=== PATIENT | male | born 1990 | race African-American/Black ===

== ENCOUNTER 2017-09-05 20:44 | Emergency (ER) | payer OTHER ==
[2017-09-05] MEDS ORDERED: Acetaminophen TAB* 325 MG PO ONE (23:47)
[2017-09-05] MEDS ORDERED: Cephalexin CAP* 500 MG PO ONE (23:47)
--- NOTE | 2017-09-05 23:50 | ED ---
Laceration/Wound HPI - HPI Summary HPI Summary: Laceration to left eyebrow after being hit by an elbow during a basketball game. Denies LOC, RAMÍREZ, N/V, vision change, change in mental status, focal deficits, pain to nose, teeth, lips, tongue.. No other complaints. - History of Current Complaint Stated Complaint: LT EYE INJURY Time Seen by Provider: 09/05/17 23:44 Hx Obtained From: Patient Mechanism of Injury: Sharp/Blunt Trauma Onset Severity: Mild Current Severity: Mild Pain Intensity: 4 Pain Scale Used: 0-10 Numeric Associated Signs & Symptoms: Negative - Allergy/Home Medications Allergies/Adverse Reactions: Allergies Allergy/AdvReac Type Severity Reaction Status Date / Time No Known Allergies Allergy Verified 09/05/17 20:54 Home Medications: Home Medications levETIRAcetam TAB* [Keppra TAB*] 500 mg PO BID 09/05/17 [History Confirmed 09/05] PMH/Surg Hx/FS Hx/Imm Hx Endocrine/Hematology History: Denies: Hx Anticoagulant Therapy Cardiovascular History: Denies: Hx Cardiac Arrest History: Denies: Hx Dialysis EENT History: Denies: Hx Deafness Neurological History: Denies: Hx Dementia Psychiatric History: Denies: Hx Autism Infectious Disease History: No Infectious Disease History: Denies: Traveled Outside the [place] in Last 30 Days - Social History Alcohol Use: None Substance Use Type: Reports: Other Substance Use Comment - Amount & Last Used: in treatement at [facility] Smoking Status (MU): Light Every Day Tobacco Smoker Review of Systems Constitutional: Negative Eyes: Negative ENT: Negative Cardiovascular: Negative Respiratory: Negative Gastrointestinal: Negative Genitourinary: Negative Musculoskeletal: Negative Skin: Negative Neurological: Negative Psychological: Normal All Other Systems Reviewed And Are Negative: Yes Physical Exam - Summary Physical Exam Summary: EOMs intact. No trauma to tongue teeth lips. Full range of motion of jaw, neck. 3 cm laceration left eyebrow. Bleeding controlled Triage Information Reviewed: Yes Vital Signs On Initial Exam: Initial Vitals Temp Pulse Resp BP Pulse Ox 98.5 F 58 13 132/85 99 09/05/17 20:51 09/05/17 20:51 09/05/17 20:51 09/05/17 20:51 09/05/17 20:51 Vital Signs Reviewed: Yes Appearance: Positive: Well-Appearing Skin: Positive: Warm Head/Face: Positive: Normal Head/Face Inspection Eyes: Positive: Normal ENT: Positive: Normal ENT inspection Neck: Positive: Supple Respiratory/Lung Sounds: Positive: Clear to Auscultation Cardiovascular: Positive: Normal Abdomen Description: Positive: Nontender Musculoskeletal: Positive: Normal Neurological: Positive: Normal Psychiatric: Positive: Normal AVPU Assessment: Alert - [place] Coma Scale Best Eye Response: 4 - Spontaneous Best Motor Response: 6 - Obeys Commands Best Verbal Response: 5 - Oriented Coma Scale Total: 15 Procedures - Laceration/Wound Repair 1 Location: face Description: Linear Anesthesia: Local, 1.0% Length, Depth and Shape: 2cm x .5cm Betadine Prep?: No - Hibiclens prep Irrigated w/ Saline (ccs): 30 - saline plus Hibiclens Laceration/Wound Explored: clean Debridement: minimal Number of Sutures: 4 - 6. 0 Ethilon Layer Closure?: No Diagnostics - Vital Signs Vital Signs Temp Pulse Resp BP Pulse Ox 09/05/17 20:51 98.5 F 58 13 132/85 99 - Laboratory Lab Statement: Any lab studies that have been ordered have been reviewed, and results considered in the medical decision making process. Laceration Repair Course/Dx - Course Course Of Treatment: Laceration to left eyebrow after being hit by an elbow during a basketball game. Denies LOC, RAMÍREZ, N/V, vision change, change in mental status, focal deficits, pain to nose, teeth, lips, tongue.. No other complaints. EOMs intact. No trauma to tongue teeth lips. Full range of motion of jaw, neck. 3 cm laceration left eyebrow. Bleeding controlled - Clinical Impression Provider Diagnoses: Laceration Discharge - Sign-Out/Discharge Documenting (check all that apply): Discharge/Admit/Transfer - Discharge Plan Condition: Stable Disposition: HOME Prescriptions: Cephalexin CAP* [Keflex CAP*] 500 mg PO TID 7 Days #21 cap Patient Education Materials: Care For Your Stitches (ED), Laceration (ED), Facial Laceration (ED) Referrals: No Primary Care Phys,NOPCP [Primary Care Provider] - [facility] [Outside] Additional Instructions: Sutures out in 5-7 days. Take antibiotics as directed. Return to the ED for any new or worsening symptoms - Billing Disposition and Condition Condition: STABLE Disposition: Home
[2017-09-06 00:22] VITALS: BP 130/66
== END 2017-09-06 00:10 | disposition home or self-care (01) ==
LOC: ED 20:44
DX: S01.112A Laceration without foreign body of left eyelid and periocular area, initial encounter (principal); W50.0XXA Accidental hit or strike by another person, initial encounter; Y93.67 Activity, basketball; Y92.9 Unspecified place or not applicable; F17.210 Nicotine dependence, cigarettes, uncomplicated
CPT/HCPCS: 99282; A9270-GY

== ENCOUNTER 2017-09-24 22:40 | Emergency (ER) | payer OTHER ==
[2017-09-24] MEDS ORDERED: NS 0.9% 1000 ML* 1,000 ML IV ONE (23:04)
[2017-09-24] MEDS ORDERED: levETIRAcetam IV* 1,000 MG in NS 0.9% 100 ML* 100 ML IVPB ONE (23:04)
[2017-09-24] MEDS ORDERED: NS 0.9% 100 ML* 100 ML ONE (23:11)
[2017-09-24 23:57] LABS: Hematocrit 29 % (42-52); Hemoglobin 9.5 g/dl (14.0-18.0); Mean Corpuscular HGB Conc 32 g/dl (31-36); Mean Corpuscular Hemoglobin 27 pg (27-31); Mean Corpuscular Volume 84 fL (80-94); Mean Platelet Volume 7.6 um3 (7.4-10.4); Platelet Count 286 10^3/ul (150-450); Red Blood Count 3.52 10^6/ul (4.00-5.40); Red Cell Distribution Width 16 % (10.5-15); White Blood Count 10.4 10^3/ul (3.5-10.8)
[2017-09-25 00:08] LABS: EGFR Non-African American 99.2 (>60)
[2017-09-25 00:23] LABS: ABS Basophils 0.1 10^3/ul (0-0.2); ABS Eosinophils 0.2 10^3/ul (0-0.6); ABS Lymphocytes 1.9 10^3/ul (1.0-4.8); ABS Monocytes 1.9 10^3/ul (0-0.8); ABS Neutrophils 6.3 10^3/ul (1.5-7.7); ABS Nucleated RBC 0 10^3/ul; Eosinophil % 2.1 % (0-6); Lymphocyte % 17.8 % (25-47); Nucleated Red Blood Cells % 0
--- NOTE | 2017-09-25 00:43 | ED ---
Tapan Moraes Angela, scribed for Esequiel Alexander MD on 09/24/17 at 2307 . Neurological HPI - HPI Summary HPI Summary: This pt is a 26 y/o male, with hx of seizures, presenting to [facility] via EMS for possible seizure. Pt was playing basketball outside when he became overheated and sat down. He then poured a glass of ice water over his head and subsequently fell over while having a seizure. Apparent seizure was witnessed and they state pt's head was shaking, not his body. Pt describes typical seizures as whole body shaking and usually has seizures once a month. Denies SOB , chest pain, nausea, vomiting. Pt notes he takes Keppra 500 mg BID, which he has taken for 2 years now. He states he has not taken it today yet. His neurologist is located in [place] and the last time he saw him was 1.5 years ago because he was in [facility]. Pt got released from halfway in January 2017. Pt has had seizures since he was 10 y/o. Pt is in [facility] for cocaine abuse. - History of Current Complaint Chief Complaint: EDSeizure Stated Complaint: SEIZURE Time Seen by Provider: 09/24/17 22:57 Hx Obtained From: Patient Onset/Duration: Sudden Onset, Resolved Timing: Sudden Onset Onset Severity: Moderate Current Severity: None Pain Intensity: 0 Pain Scale Used: 0-10 Numeric Seizure Character: Partial (Specify) - head only Aggravating: Nothing Alleviating: Spontanious Resolution Associated Signs and Symptoms: Positive: Seizure. Negative: Nausea/Vomiting, Fever, Chest Pain, Shortness of Breath - Allergy/Home Medications Allergies/Adverse Reactions: Allergies Allergy/AdvReac Type Severity Reaction Status Date / Time No Known Allergies Allergy Verified 09/05/17 20:54 PMH/Surg Hx/FS Hx/Imm Hx Endocrine/Hematology History: Denies: Hx Anticoagulant Therapy Cardiovascular History: Denies: Hx Cardiac Arrest History: Denies: Hx Dialysis Sensory History: Denies: Hx Deafness Neurological History: Reports: Hx Seizures Denies: Hx Dementia Psychiatric History: Denies: Hx Autism - Immunization History Date of Tetanus Vaccine: 2013 Date of Influenza Vaccine: none Infectious Disease History: No Infectious Disease History: Denies: Traveled Outside the [place] in Last 30 Days - Family History Known Family History: Negative: Cardiac Disease - Social History Alcohol Use: None Substance Use Type: Reports: Cocaine, Other Substance Use Comment - Amount & Last Used: in treatement at [facility] Smoking Status (MU): Light Every Day Tobacco Smoker Review of Systems Negative: Fever, Chills Negative: Chest Pain Negative: Shortness Of Breath Negative: Vomiting, Nausea Neurological: Other - POS: seizure All Other Systems Reviewed And Are Negative: Yes Physical Exam - Summary Physical Exam Summary: VITAL SIGNS: Reviewed. GENERAL: Patient is a well-developed and nourished male who is lying comfortable in the stretcher. Patient is not in any acute respiratory distress. HEAD AND FACE: No signs of trauma. No ecchymosis, hematomas or skull depressions. No sinus tenderness. EYES: PERRLA, EOMI x 2, No injected conjunctiva, no nystagmus. EARS: Hearing grossly intact. Ear canals and tympanic membranes are within normal limits. MOUTH: Oropharynx within normal limits. NECK: Supple, trachea is midline, no adenopathy, no JVD, no carotid bruit, no c- spine tenderness, neck with full ROM. CHEST: Symmetric, no tenderness at palpation LUNGS: Clear to auscultation bilaterally. No wheezing or crackles. CVS: Regular rate and rhythm, S1 and S2 present, no murmurs or gallops appreciated. ABDOMEN: Soft, non-tender. No signs of distention. No rebound no guarding, and no masses palpated. Bowel sounds are normal. EXTREMITIES: FROM in all major joints, no edema, no cyanosis or clubbing. NEURO: Alert and oriented x 3. No acute neurological deficits. Speech is normal and follows commands. SKIN: Dry and warm Triage Information Reviewed: Yes Vital Signs On Initial Exam: Initial Vitals Temp Pulse Resp BP Pulse Ox 98.9 F 65 21 126/72 97 09/24/17 22:43 09/24/17 22:43 09/24/17 22:43 09/24/17 22:43 09/24/17 22:43 Vital Signs Reviewed: Yes Diagnostics - Vital Signs Vital Signs Temp Pulse Resp BP Pulse Ox 09/24/17 22:43 98.9 F 65 21 126/72 97 - Laboratory Result Diagrams: 09/24/17 23:32 09/24/17 23:32 Lab Statement: Any lab studies that have been ordered have been reviewed, and results considered in the medical decision making process. Re-Evaluation - Re-Evaluation First Eval Re-Evaluation Time: 00:23 Comment: Reviewed results with the pt. He will be discharged home with neuro follow up. Course/Dx - Course Assessment/Plan: Pt is a 26 y/o male, with hx of seizures, who presents for possible seizure. Pt was playing basketball outside when he became overheated and sat down. He then poured a glass of ice water over his head and subsequently fell over while having a seizure. Apparent seizure was witnessed and they state pt's head was shaking, not his body. Pt notes LOC. Pt describes typical seizures as whole body shaking and usually has seizures once a month. Denies SOB, chest pain, nausea, vomiting. Pt did not take Keppra today. Test results without any significant abnormalities except for hemoglobin of 9.5, hematocrit of 29. In the ED course the pt was given IV fluids, Keppra. Pt will be discharged home with follow up from neurology. He is instructed to increase his Keppra dose from 500 mg BID to 750 mg BID. Pt was given a prescription for 250 mg to add on to his 500 mg. He is also instructed to return to the ED for any worsening symptoms. - Diagnoses Provider Diagnoses: Recurrent seizures Discharge - Sign-Out/Discharge Documenting (check all that apply): Discharge/Admit/Transfer - Discharge - Discharge Plan Condition: Stable Disposition: HOME Prescriptions: levETIRAcetam [Keppra] 250 mg PO BID #60 tablet Patient Education Materials: Recurrent Seizures in Adults (ED) Referrals: Jas Frias MD [Medical Doctor] - Additional Instructions: Increase you Keppra dose from 500 mg twice a day to 750 mg twice a day. Please follow up with Dr. Frias, neurologist. RETURN TO EMERGENCY DEPARTMENT FOR ANY NEW OR WORSENING SYMPTOMS. The documentation as recorded by the Tapan nicholson Angela accurately reflects the service I personally performed and the decisions made by me, Esequiel Alexander MD.
[2017-09-25 01:02] VITALS: BP 114/73
== END 2017-09-25 00:50 | disposition home or self-care (01) ==
LOC: ED 22:40
DX: G40.909 Epilepsy, unspecified, not intractable, without status epilepticus (principal); F17.210 Nicotine dependence, cigarettes, uncomplicated
CPT/HCPCS: 36415; 80053; 82550; 83735; 85025; 96361; 96365; 99283